=== PATIENT | female | born 1960 | race Caucasian/White ===

== ENCOUNTER → 2016-08-17 | Day surgery (SDC) | payer OTHER ==
[2016-08-07 15:30] VITALS: Ht 167.6 cm; Wt 122.7 kg
[~2016-08-17] VITALS: Ht 167.6 cm; Wt 122.7 kg
[~2016-08-17] MED LIST: ALBUAER2 INH; APIX1TAB3 PO; BRIM0.1S OPB; FENTANYL CITRATE INJ 50 MCG/1 ML 2 ML VIAL ONE; GLIM1TAB2 PO; LEVO150T PO; LIDOCAINE HCL 2% 2 ML VIAL (20MG/ML) ONE; LORA-741 PO; LOSA50TA6 PO; METO-217 PO; MIDAZOLAM HCL 1 MG/ML 2ML VIAL ONE; NXM/40 PO; PROPOFOL IV EMULSION 10 MG/ML 20 ML VIAL IV ONE
--- NOTE | 2016-08-17 13:45 | Endo History and Physical ---
History & Physical Date of Service: Aug 17, 2016. Chief Complaint: iron deficiency anemia Referring Physician: Dr. Okeefe History of Present Illness For colonoscopy Past Medical History Diabetes, Arthritis, Asthma, Reflux, High Cholesterol, Hypertension, Thyroid Disease Past Surgical History Hx Cardiac Surgery: Yes (CARDIAC ALBATION) Hx Abdominal Surgery: Yes (SHON BSO) Hx Post-Op Nausea and Vomiting: Yes Hx Cancer Surgery: No Hx Thoracic Surgery: No Hx Orthopedic: Yes (R FOOT BONE SPUR REMOVAL, RT/LEFT TKA, RT/LEFT CTR) Hx Urinary Tract Surgery: No Family History Esophogeal CA Social History Smoking Status: Never Smoker Hx Substance Use: No Hx Alcohol Use: Yes (OCCASSIONALLY) Allergies Coded Allergies: EZEQUIEL Inhibitors (Verified Allergy, Unknown, Cough, 08/07/16) Cat Dander (Verified Allergy, Unknown, CAT,DOG DANDER-EYES SWELL SHUT, 08/17) Latex1 -Allergic Contact Dermititis (Verified Allergy, Unknown, LOCAL SKIN RASH,BRUISES, 08/17/16) POLLEN (Verified Allergy, Unknown, POLLEN,GRASS,TREES,DUST-RUNNY NOSE, ITCHY EYES,SNEEZING, 08/17/16) Uncoded Allergies: POTATOES (Allergy, Unknown, verified by allergy testing, 08/10/15) Current Medications Reported Home Medications Medications Dose Route/Sig Max Daily Dose Days Date Category Toprol Xl (Metoprolol Succinate) 50 Mg Tabcr 50 Mg PO QAM 08/07/16 Reported Alphagan P Oph (Brimonidine Tartrate) 0.1 % Karen 2 Drop OPB BID 08/07/16 Reported Ativan (Lorazepam) 0.5 Mg Tab 0.5 Mg PO DAILY PRN 12/21/15 Reported Synthroid (Levothyroxine Sodium) 150 Mcg Tab 150 Mcg PO QAM 12/21/15 Reported Cozaar (Losartan Potassium) 50 Mg Tab 50 Mg PO QAM 12/21/15 Reported Eliquis (Apixaban) 5 Mg Tab 1 Tab PO BID 08/10/15 Reported Ventolin Hfa (Albuterol) Aers 2 Puffs INH TID PRN 06/21/15 Reported Glimepiride 1 Mg Tab 1 Tab PO QAM 90 06/21/15 Reported Nexium (Esomeprazole Magnesium) 40 Mg Capcr 40 Mg PO QAM 06/21/15 Reported Vital Signs Weight (Kilograms): 122.73 Height (Feet): 5 Height (Inches): 6 Physical Exam General Appearance: + obese Respiratory/Chest: Respiratory effort: no dyspnea Cardiovascular: Apical Impulse: pertinent finding (A fib) Abdomen: Inspection & Palpation: soft Assessment and Plan anemia for colonoscopy
--- NOTE | 2016-08-17 14:30 | Discharge Instructions ---
Endoscopy Patient Instructions Date / Procedure(s) Performed Aug 17, 2016. Colonoscopy Allergy Information Coded Allergies: EZEQUIEL Inhibitors (Verified Allergy, Unknown, Cough, 08/07/16) Cat Dander (Verified Allergy, Unknown, CAT,DOG DANDER-EYES SWELL SHUT, 08/17) Latex1 -Allergic Contact Dermititis (Verified Allergy, Unknown, LOCAL SKIN RASH,BRUISES, 08/17/16) POLLEN (Verified Allergy, Unknown, POLLEN,GRASS,TREES,DUST-RUNNY NOSE, ITCHY EYES,SNEEZING, 08/17/16) Uncoded Allergies: POTATOES (Allergy, Unknown, verified by allergy testing, 08/10/15) Discharge Date / Findings Aug 17, 2016. Diverticulosis, polyp Medication Instructions Stopped Medication(s): stopped Eloquis on Saturday Restart Stopped Medication(s): resume meds Reported Home Medications Medications Dose Route/Sig Max Daily Dose Days Date Category Toprol Xl (Metoprolol Succinate) 50 Mg Tabcr 50 Mg PO QAM 08/07/16 Reported Alphagan P Oph (Brimonidine Tartrate) 0.1 % Karen 2 Drop OPB BID 08/07/16 Reported Ativan (Lorazepam) 0.5 Mg Tab 0.5 Mg PO DAILY PRN 12/21/15 Reported Synthroid (Levothyroxine Sodium) 150 Mcg Tab 150 Mcg PO QAM 12/21/15 Reported Cozaar (Losartan Potassium) 50 Mg Tab 50 Mg PO QAM 12/21/15 Reported Eliquis (Apixaban) 5 Mg Tab 1 Tab PO BID 08/10/15 Reported Ventolin Hfa (Albuterol) Aers 2 Puffs INH TID PRN 06/21/15 Reported Glimepiride 1 Mg Tab 1 Tab PO QAM 90 06/21/15 Reported Nexium (Esomeprazole Magnesium) 40 Mg Capcr 40 Mg PO QAM 06/21/15 Reported Provider Instructions Activity Restrictions - No exercising or heavy lifting for 24 hours. - Do not drink alcohol the day of the procedure. - Do not drive a car or operate machinery until the day after the procedure. - Do not make any important decisions or sign important papers in 24 hours after the procedure. Following Day: - Return to full activity which may include returning to work/school. Diet Start your diet with liquids and light foods (jello, soup, juice, toast). Then eat your usual diet if not nauseated. Treatment For Common After Affects For mild abdominal pain, bloating, or excessive gas: - Rest - Eat lightly - Lie on right side Follow-Up Information Follow-up with Dr. Emmy Okeefe as scheduled Anesthesia Information What You Should Know You have had a procedure that required some medicine to reduce anxiety and discomfort. This treatment is called moderate sedation. After receiving the treatment, you may be sleepy, but you will be able to breathe on your own. The effects of the treatment may last for several hours. Follow these instructions along with Activity/Diet recommendations noted above: * Do NOT do anything where dizziness or clumsiness would be dangerous. * Rest quietly at home today, then you can be up and about tomorrow. * Have a responsible person stay with you the rest of today. * You may have had an I.V. today. If so, you may take the dressing off later today. Recommendations Call your doctor if: * Trouble breathing * Continuous vomiting for more than 24 hours * Temperature above 101 degrees * Severe abdominal pain or bloating * Pain not relieved by pain medicine ordered * There is increased drainage or redness from any incision * A large amount of rectal bleeding greater than 2-3 tablespoons. (If you had a polyp/s removed or have hemorrhoids, a small amount of blood - from the rectum is to be expected.) * You have any unanswered questions or concerns. IN THE EVENT OF A SERIOUS EMERGENCY, GO TO THE NEAREST EMERGENCY ROOM Your discharge instructions were prepared by provider Jeffery Echeverria. Patient Instructions Signature Page Donna Rowley Patient (or Guardian) Signature/Date: I have read and understand the instructions given to me by my caregivers. Caregiver/RN/Doctor Signature/Date: The above-named patient and/or guardian has received patient instructions on this date. + Original Patient Signature Page (only) stays with chart. Please make copy for patient.
--- NOTE | 2016-08-17 14:39 | GI REPORT ---
Procedure Date: 08/17/2016 1:55 PM Procedure: Colonoscopy Indications: Iron deficiency anemia Medicines: Midazolam 2 mg IV, Propofol total dose 300 mg IV, Lidocaine 40 mg IV Complications: No immediate complications., IV infiltration Estimated Blood Loss: Estimated blood loss was minimal. Procedure: Pre-Anesthesia Assessment: - Prior to the procedure, a History and Physical was performed, and patient medications, allergies and sensitivities were reviewed. The patient's tolerance of previous anesthesia was reviewed. - The risks and benefits of the procedure and the sedation options and risks were discussed with the patient. All questions were answered and informed consent was obtained. After I obtained informed consent, the scope was passed under direct vision. Throughout the procedure, the patient's blood pressure, pulse, and oxygen saturations were monitored continuously. The scope was introduced through the anus and advanced to the terminal ileum. The colonoscopy was performed without difficulty. The patient tolerated the procedure well. The quality of the bowel preparation was excellent. Findings: The terminal ileum appeared normal. A 4 mm polyp was found in the rectum. The polyp was sessile. The polyp was removed with a cold snare. Resection and retrieval were complete. Estimated blood loss was minimal. A few diverticula were found in the sigmoid colon. Impression: - The examined portion of the ileum was normal. - One 4 mm polyp in the rectum, removed with a cold snare. Resected and retrieved. - Diverticulosis in the sigmoid colon. Recommendation: - Discharge patient to home (ambulatory). - Continue present medications. - Await pathology results. - Return to primary care physician ANGELINAN. Jeffery Echeverria M.D. Jeffery Echeverria MD 08/17/2016 2:39:22 PM This report has been signed electronically. Note Initiated On: 08/17/2016 1:55 PM I attest to the content of the Intraoperative Record and orders documented therein, exceptions below
--- NOTE | 2016-08-17 14:49 | Anesthesiology Progress Note ---
Anesthesia Post Op Note Date & Time Aug 17, 2016 at 14:50 Vital Signs Pain Intensity: 0 Vital Signs Past 12 Hours Date Time Temp Pulse Resp B/P Pulse Ox O2 Delivery O2 Flow Rate FiO2 08/17/16 14:36 77 16 132/68 96 Room Air 08/17/16 13:25 36.6 88 18 189/72 98 Room Air Notes Mental Status: alert / awake / arousable, participated in evaluation Pt Amnestic to Procedure: Yes Nausea / Vomiting: adequately controlled Pain: adequately controlled Airway Patency, RR, SpO2: stable & adequate BP & HR: stable & adequate Hydration State: stable & adequate Anesthetic Complications: no major complications apparent
[2016-08-17 15:06] VITALS: BP 131/82; PULSE 71; O2SAT 96
== END | disposition home or self-care (01) ==
LOC: C.GI 13:08
PROVIDERS: ATTEND Internal Medicine Gastroenterology
DX: D50.9 Iron deficiency anemia, unspecified (principal); D12.8 Benign neoplasm of rectum; K21.9 Gastro-esophageal reflux disease without esophagitis; K57.32 Diverticulitis of large intestine without perforation or abscess without bleeding; E11.9 Type 2 diabetes mellitus without complications; J45.909 Unspecified asthma, uncomplicated; E78.00 Pure hypercholesterolemia, unspecified; I10 Essential (primary) hypertension; E07.9 Disorder of thyroid, unspecified

== ENCOUNTER → 2016-12-19 | Outpatient (CLI) | payer OTHER ==
[~2016-12-19] MED LIST changes: -FENTANYL CITRATE INJ 50 MCG/1 ML 2 ML VIAL ONE; -LIDOCAINE HCL 2% 2 ML VIAL (20MG/ML) ONE; -MIDAZOLAM HCL 1 MG/ML 2ML VIAL ONE; +OPTIRAY 320 IV PRN; -PROPOFOL IV EMULSION 10 MG/ML 20 ML VIAL IV ONE
--- NOTE | 2016-12-19 15:25 | DIAGNOSTIC IMAGING REPORT ---
CT ABD/PELVIS IV AND ORAL CONT CLINICAL HISTORY: Abdominal pain. History of diverticulitis. Possible abscess. COMPARISON STUDY: 04/07/2015 TECHNIQUE: Following the IV administration of 93 mL of Optiray-320, CT scan of the abdomen and pelvis was performed from the lung bases to the proximal femurs. Images are reviewed in the axial, sagittal, and coronal planes. IV contrast was administered without complication. CT DOSE: 1719.16 mGy.cm FINDINGS: Lower chest: The heart is normal in size and configuration, without pericardial effusion. The lung bases and pleural spaces are clear. Liver: There is mild hepatic steatosis. No suspicious space-occupying masses are visualized. Portal vein appears patent. Gallbladder: Surgically absent Spleen: Normal in size and attenuation. Pancreas: Unremarkable. Adrenal glands: Unremarkable. Kidneys: Subcentimeter left renal hypodensities remain stable. These are too small to characterize but likely represent cysts. Bowel: There are no transition zones indicate bowel obstruction. The appendix is not visualized with certainty. There are no findings to indicate acute appendicitis. There is minimal infiltration of the perisigmoid fat. There are few scattered diverticula present. The findings likely represent mild diverticulitis. There are no fluid collections to indicate an abscess. Peritoneum: There is no intraperitoneal free air or abdominal ascites. Vasculature: The abdominal aorta is normal in course and caliber. Adenopathy: None. Pelvic viscera: The uterus is surgically absent. Skeletal structures: No destructive osseous lesions are seen. IMPRESSION: 1. No evidence of bowel obstruction. No evidence of free air 2. Subtle infiltration of the perisigmoid fat, likely secondary to mild diverticulitis. No evidence of peridiverticular abscess. 3. No evidence of acute appendicitis. 4. Hepatic steatosis Electronically signed by: Hardy Lewis M.D. 12/19/2016 3:23 PM Dictated Date/Time: 12/19/2016 3:18 PM
== END | disposition home or self-care (01) ==
LOC: C.CTS 12:48
PROVIDERS: ATTEND Nurse Practitioner Family
DX: K57.92 Diverticulitis of intestine, part unspecified, without perforation or abscess without bleeding (principal); K76.0 Fatty (change of) liver, not elsewhere classified

== ENCOUNTER → 2017-03-13 | Outpatient (CLI) | payer OTHER ==
[~2017-03-13] MED LIST changes: -OPTIRAY 320 IV PRN
[2017-03-13 14:13] LABS: THYROID STIMULATING HORMONE 2.18 uIu/ml (0.300-4.500)
== END | disposition home or self-care (01) ==
LOC: C.LABPBG 07:27
PROVIDERS: ATTEND Family Medicine
DX: E03.9 Hypothyroidism, unspecified (principal)

== ENCOUNTER → 2017-06-13 | Outpatient (CLI) | payer OTHER ==
[2017-06-13 18:16] LABS: THYROID STIMULATING HORMONE 2.56 uIu/ml (0.300-4.500)
== END | disposition home or self-care (01) ==
LOC: C.LABPBG 15:13
PROVIDERS: ATTEND Family Medicine
DX: E11.9 Type 2 diabetes mellitus without complications (principal); E03.9 Hypothyroidism, unspecified

== ENCOUNTER → 2017-06-17 | Outpatient (CLI) | payer OTHER | END | disposition home or self-care (01) | LOC: C.LABPBG 13:06 | PROVIDERS: ATTEND Family Medicine | DX: E11.9 Type 2 diabetes mellitus without complications (principal); E03.9 Hypothyroidism, unspecified ==

== ENCOUNTER 2017-11-04 13:50 | Emergency (ER) | payer OTHER ==
[~2017-11-04] VITALS: Ht 167.6 cm; Wt 109.7 kg
[2017-11-04 13:57] VITALS: TEMP 38.2; Ht 167.6 cm; Wt 109.7 kg
[2017-11-04] MEDS ORDERED: ONDANSETRON INJ 2 MG/ML 2 ML VIAL IV STA (14:18)
[2017-11-04] MEDS ORDERED: SODIUM CHLORIDE 0.9% 1000ML 1,000 ML IV STA (14:18)
[2017-11-04] MEDS ORDERED: ACETAMINOPHEN 500 MG TAB PO STA (14:18)
[2017-11-04] MEDS ORDERED: SODIUM CHLORIDE 0.9% 1000ML 500 ML IV STA (14:18)
[2017-11-04] MEDS ORDERED: ROSU5TAB19 PO (14:29)
[2017-11-04] MEDS ORDERED: PROP150T2 PO (14:29)
[2017-11-04] MEDS ORDERED: VNTHFA/IN INH (14:29)
[2017-11-04 14:33] LABS: BASO % 0.1 %; BASO ABS # 0.01 K/uL (0-0.2); EOS % 1.1 %; EOS ABS # 0.13 K/uL (0-0.5); HEMATOCRIT 40.6 % (37-47); HEMOGLOBIN 13.4 g/dL (12.0-16.0); IG# 0.02 K/uL (0.00-0.02); LYMPH % 3.9 %; LYMPH ABS # 0.44 K/uL (1.2-3.4); MEAN CELL VOLUME 87.3 fL (80-100); MEAN CORPUSCULAR HEMOGLOBIN 28.8 pg (25-34); MONO % 3.9 %; MONO ABS # 0.44 K/uL (0.11-0.59); NEUT % 90.8 %; NEUT ABS # 10.27 K/uL (1.4-6.5); PLATELET COUNT 256 K/uL (130-400); RED CELL DISTRIBUTION WIDTH CV 13.9 % (11.5-14.5); RED CELL DISTRIBUTION WIDTH SD 44.3 fL (36.4-46.3); WHITE BLOOD COUNT 11.31 K/uL (4.8-10.8)
[2017-11-04 14:53] LABS: ALBUMIN 3.7 gm/dl (3.4-5.0); ALT/SGPT 35 U/L (12-78); AST/SGOT 19 U/L (15-37); BLOOD UREA NITROGEN 10 mg/dl (7-18); CALCIUM 8.7 mg/dl (8.5-10.1); CARBON DIOXIDE 26 mmol/L (21-32); CREATININE 0.84 mg/dl (0.60-1.20); GLUCOSE 157 mg/dl (70-99); LIPASE 100 U/L (73-393); POTASSIUM 3.7 mmol/L (3.5-5.1); SODIUM 139 mmol/L (136-145)
[2017-11-04 14:55] LABS: ALKALINE PHOSPHATASE 148 U/L (45-117); TOTAL PROTEIN 8.2 gm/dl (6.4-8.2)
--- NOTE | 2017-11-04 14:58 | EMERGENCY ROOM VISIT NOTE ---
History Report prepared by Lester: Danika Barker Under the Supervision of: Dr. Chetan Locke M.D. First contact with patient: 14:06 Chief Complaint: VOMITING Stated Complaint: THROWING UP History of Present Illness The patient is a 57 year old female who presents to the Emergency Room with complaints of abdominal pain beginning last night. The patient rates her pain at an 8/10. She reports that she feels fatigued and that when she stands her stomach feels like it is cramping. The patient states that bending over and curling up alleviates her abdominal pain. She also reports having nausea, vomiting, and a fever. The patient states that she has two hernias, one of which is an umbilical hernia and the other one is incisional. She reports a history of a cholecystectomy and states that she has had part of her intestine removed in [place] due to diverticulitis. The patient states that she takes medication for hypertension and that she did not take her medication today. She denies a history of an appendectomy. Pt denies LOC, headache, chills, diaphoresis, visual changes, neck pain, chest pain, breathing difficulties, back pain, melena, hematochezia, urinary symptoms, numbness, weakness, lymphadenopathy, rash, or other complaints. Source of History: patient Onset: last night Position: abdomen Symptom Intensity: rated at an 8/10 Quality: cramping Modifying Factors (Relieving): other (bending over, curling up ) Associated Symptoms: + fevers, + nausea, + vomiting, No chest pain Review of Systems See HPI for pertinent positives and negatives. A total of ten systems were reviewed and were otherwise negative. Past Medical & Surgical Medical Problems: (1) Asthma (2) Diabetes (3) Heart disease (4) Hypertension Surgical Problems: (1) S/P cholecystectomy (2) S/P partial colectomy Family History Gallbladder disease Heart disease Hypertension Seizures Social History Smoking Status: Never Smoker Alcohol Use: occasionally Housing Status: lives with significant other Occupation Status: employed Current/Historical Medications Scheduled Apixaban (Eliquis), 5 MG PO BID Esomeprazole Magnesium (Nexium), 40 MG PO BID Glimepiride (Glimepiride), 1 MG PO BID Levothyroxine Sodium (Synthroid), 150 MCG PO QAM Losartan Potassium (Cozaar), 50 MG PO QAM Metoprolol Succinate (Toprol Xl), 50 MG PO QAM Propafenone HCl (Propafenone HCl), 150 MG PO BID Rosuvastatin Calcium (Rosuvastatin Calcium), 5 MG PO DAILY Scheduled PRN Albuterol Hfa (Ventolin Hfa), 2 PUFFS INH TID PRN for SOB/Wheezing Allergies Coded Allergies: EZEQUIEL Inhibitors (Verified Allergy, Unknown, Cough, 11/04/17) Cat Dander (Verified Allergy, Unknown, CAT,DOG DANDER-EYES SWELL SHUT, ) Latex1 -Allergic Contact Dermititis (Verified Allergy, Unknown, LOCAL SKIN RASH,BRUISES, 11/04/17) POLLEN (Verified Allergy, Unknown, POLLEN,GRASS,TREES,DUST-RUNNY NOSE, ITCHY EYES,SNEEZING, 11/04/17) Uncoded Allergies: POTATOES (Allergy, Unknown, verified by allergy testing, 08/10/15) Physical Exam Vital Signs Date Time Temp Pulse Resp B/P (MAP) Pulse Ox O2 Delivery O2 Flow Rate FiO2 11/04/17 16:18 79 16 128/73 96 Room Air 11/04/17 15:01 85 11/04/17 13:57 38.2 95 20 203/112 96 Room Air Physical Exam GENERAL: Awake, alert, uncomfortable-appearing, in no distress HENT: Normocephalic, atraumatic. Oropharynx unremarkable. EYES: Normal conjunctiva. Sclera non-icteric. NECK: Supple. No nuchal rigidity. FROM. No masses. RESPIRATORY: Clear to auscultation. No wheezes. No rales. Normal respiratory effort. CARDIAC: Mildly tachycardic. Normal rhythm. No murmurs. No rubs. Extremities warm and well perfused. Pulses equal. No JVD. GI: Soft, non-distended. Reducible, nontender umbilical hernia. Suprapubic, right lower quadrant, and right upper quadrant tenderness. No rebound or guarding. RECTAL: Deferred. MUSCULOSKELETAL: Atraumatic. Chest examination reveals no tenderness. The back is symmetrical on inspection without obvious abnormality. There is no CVA tenderness to palpation. No joint edema. LOWER EXTREMITIES: Calves are equal size bilaterally and non-tender. No edema. No discoloration. NEURO: Normal sensorium. No sensory or motor deficits noted. SKIN: No rash or jaundice noted. Medical Decision & Procedures ER Provider Diagnostic Interpretation: Radiology results as stated below per my review and radiologist interpretation: CT SCAN OF THE ABDOMEN AND PELVIS WITHOUT CONTRAST CLINICAL HISTORY: Acute right-sided abdominal pain. Vomiting. COMPARISON STUDY: 12/19/2016 TECHNIQUE: CT scan of the abdomen and pelvis was performed from the lung bases to the proximal femurs. Images are reviewed in the axial, sagittal, and coronal planes. IV contrast was not administered for this examination. A dose lowering technique was utilized adhering to the principles of ALARA. CT DOSE: 949.60 mGycm FINDINGS: Lower chest: The heart is normal in size and configuration, without pericardial effusion. The lung bases and pleural spaces are clear. Liver: There is mild hepatic steatosis. No focal masses are visualized in this noncontrast study Gallbladder: Surgically absent Spleen: Normal in size and attenuation. Pancreas: Unremarkable. Adrenal glands: Unremarkable. Kidneys: No renal, ureteral, or bladder calculi are visualized. Bowel: There are no transition zones indicate bowel obstruction. There is a surgical anastomotic suture line within the sigmoid. There is colonic diverticulosis. There are no acute peridiverticular inflammatory changes. There are no findings to indicate acute appendicitis. Peritoneum: There is no intraperitoneal free air or abdominal ascites. As a fat-containing umbilical hernia Vasculature: The abdominal aorta is normal in course and caliber. Adenopathy: None. Pelvic viscera: The uterus appears surgically absent Skeletal structures: No destructive osseous lesions are seen. IMPRESSION: 1. No acute intra-abdominal or pelvic findings 2. Surgically absent uterus and gallbladder 3. Fat-containing umbilical hernia 4. No evidence of bowel obstruction. No evidence of free air 5. Diverticulosis. No evidence of acute diverticulitis Electronically signed by: Hardy Lewis M.D. 11/04/2017 2:56 PM Dictated Date/Time: 11/04/2017 2:51 PM Laboratory Results 11/04/17 14:10 Red Blood Count 4.65, Mean Corpuscular Volume 87.3, Mean Corpuscular Hemoglobin 28.8, Mean Corpuscular Hemoglobin Concent 33.0, Mean Platelet Volume 9.0, Neutrophils (%) (Auto) 90.8, Lymphocytes (%) (Auto) 3.9, Monocytes (%) (Auto) 3.9, Eosinophils (%) (Auto) 1.1, Basophils (%) (Auto) 0.1, Neutrophils # (Auto) 10.27, Lymphocytes # (Auto) 0.44, Monocytes # (Auto) 0.44, Eosinophils # (Auto) 0.13, Basophils # (Auto) 0.01 11/04/17 14:10 Test 11/04/17 14:10 11/04/17 15:50 White Blood Count 11.31 K/uL (4.8-10.8) Red Blood Count 4.65 M/uL (4.2-5.4) Hemoglobin 13.4 g/dL (12.0-16.0) Hematocrit 40.6 % (37-47) Mean Corpuscular Volume 87.3 fL (80-100) Mean Corpuscular Hemoglobin 28.8 pg (25-34) Mean Corpuscular Hemoglobin Concent 33.0 g/dl (32-36) Platelet Count 256 K/uL (130-400) Mean Platelet Volume 9.0 fL (7.4-10.4) Neutrophils (%) (Auto) 90.8 % Lymphocytes (%) (Auto) 3.9 % Monocytes (%) (Auto) 3.9 % Eosinophils (%) (Auto) 1.1 % Basophils (%) (Auto) 0.1 % Neutrophils # (Auto) 10.27 K/uL (1.4-6.5) Lymphocytes # (Auto) 0.44 K/uL (1.2-3.4) Monocytes # (Auto) 0.44 K/uL (0.11-0.59) Eosinophils # (Auto) 0.13 K/uL (0-0.5) Basophils # (Auto) 0.01 K/uL (0-0.2) RDW Standard Deviation 44.3 fL (36.4-46.3) RDW Coefficient of Variation 13.9 % (11.5-14.5) Immature Granulocyte % (Auto) 0.2 % Immature Granulocyte # (Auto) 0.02 K/uL (0.00-0.02) Anion Gap 7.0 mmol/L (3-11) Est Creatinine Clear Calc Drug Dose 90.4 ml/min Estimated GFR () 88.2 Estimated GFR (Non- 76.1 BUN/Creatinine Ratio 12.5 (10-20) Calcium Level 8.7 mg/dl (8.5-10.1) Total Bilirubin 0.4 mg/dl (0.2-1) Direct Bilirubin < 0.1 mg/dl (0-0.2) Aspartate Amino Transf (AST/SGOT) 19 U/L (15-37) Alanine Aminotransferase (ALT/SGPT) 35 U/L (12-78) Alkaline Phosphatase 148 U/L (45-117) Total Protein 8.2 gm/dl (6.4-8.2) Albumin 3.7 gm/dl (3.4-5.0) Lipase 100 U/L (73-393) Urine Color YELLOW Urine Appearance CLEAR (CLEAR) Urine pH 6.0 (4.5-7.5) Urine Specific [place] 1.024 (1.000-1.030) Urine Protein NEG (NEG) Urine Glucose (UA) NEG (NEG) Urine Ketones NEG (NEG) Urine Occult Blood NEG (NEG) Urine Nitrite NEG (NEG) Urine Bilirubin NEG (NEG) Urine Urobilinogen NEG (NEG) Urine Leukocyte Esterase TRACE (NEG) Urine WBC (Auto) 1-5 /hpf (0-5) Urine RBC (Auto) 0-4 /hpf (0-4) Urine Hyaline Casts (Auto) 0 /lpf (0-5) Urine Epithelial Cells (Auto) 20-30 /lpf (0-5) Urine Bacteria (Auto) NEG (NEG) Laboratory results reviewed by me Medications Administered Medications (Trade) Dose Ordered Sig/[place] Route Start Time Stop Time Status Last Admin Dose Admin Sodium Chloride 1,000 ml @ 125 mls/hr Q8H STAT IV 11/04/17 14:18 11/04/17 17:12 DC 11/04/17 14:29 125 MLS/HR Sodium Chloride 500 ml @ 999 mls/hr Q31M STAT IV 11/04/17 14:18 11/04/17 14:48 DC 11/04/17 14:30 999 MLS/HR Ondansetron HCl (Zofran Inj) 4 mg NOW STAT IV 11/04/17 14:18 11/04/17 14:19 DC 11/04/17 14:29 4 MG Acetaminophen (Tylenol Tab) 1,000 mg NOW STAT PO 11/04/17 14:18 11/04/17 14:19 DC 11/04/17 14:30 1,000 MG Promethazine HCl (Phenergan 25MG Home Pack) 1 homepack UD ONCE PO 11/04/17 17:00 11/04/17 17:01 DC 11/04/17 16:56 1 HOMEPACK ED Course 1410: The patient was evaluated in room B3B. A complete history and physical exam was performed. 1418: Ordered Tylenol Tab 1,000 mg PO, Zofran Inj 4 mg IV, Sodium Chloride 500 ml @ 999 mls/hr IV, Sodium Chloride 1,000 ml @ 125 mls/hr IV. 1440: I went to check on the patient but she was in CT. 1515: I checked on the patient. She is feeling better and says that her nausea is gone. 1650: I reevaluated the patient. Discussed results and discharge instructions: She verbalized understanding and agreement. The patient is ready for discharge. 1700: Ordered Promethazine HCl 1 homepack PO. Medical Decision Prior records/ancillary studies reviewed. Triage Nursing notes reviewed and agree them. The patient's history was concerning for abdominal pain. Differential diagnosis: Etiologies such as appendicitis, diverticulitis, PUD, biliary pathology, gastroenteritis, gastritis, UTI, pancreatitis, obstruction, mesenteric ischemia , aortic pathology, infections, inflammatory bowel disease, renal colic, as well as others were entertained. Physical examination findings: As above. ER treatment provided: Normal saline hydration IV Zofran Patient declined analgesia On reassessment the patient felt significantly better. She was tolerating oral fluids without difficulty. Diagnostics interpreted by me: The labs revealed a moderate leukocytosis on CBC. Chemistry panel was unremarkable except for mild hyperglycemia. Urinalysis unremarkable Imaging studies: CT scan as above Clinical the patient is doing well. Her symptoms have resolved with hydration and Zofran. She did not receive any pain medication. She was tolerating oral fluids. 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 She may have picked up a possible virus to this nausea, vomiting and abdominal pain. She has not had any diarrhea to this point. There is no evidence of significant pathology on CT imaging. As she has resolution of her symptoms I discussed conservative management. The patient was given a Phenergan home pack. She feels very comfortable with the plan. If she worsens in any way she will be back. She will follow-up as an outpatient for recheck of the current condition as well as her blood pressure. I gave my usual and customary discussion regarding this issue. By the evaluation outlined above other emergent etiologies such as those listed in the differential, as well as others, were deemed relatively unlikely. The patient was educated about the findings as listed above. All questions were answered and the patient was pleased with the treatment. Return instructions were outlined and the patient was discharged in stable condition. The patient was referred to her PCP for follow-up for a recheck of the current condition. Medication Reconcilliation Current Medication List: was personally reviewed by me Blood Pressure Screening Patient's blood pressure: Elevated blood pressure Blood pressure disposition: Referred to PCP Impression Primary Impression: Vomiting Additional Impression: Right sided abdominal pain Scribe Attestation The scribe's documentation has been prepared under my direction and personally reviewed by me in its entirety. I confirm that the note above accurately reflects all work, treatment, procedures, and medical decision making performed by me. Departure Information Dispostion Home / Self-Care Referrals Emmy Okeefe D.O. (PCP) Forms HOME CARE DOCUMENTATION FORM, IMPORTANT VISIT INFORMATION Patient Instructions My [facility] Additional Instructions VOMITING INSTRUCTIONS: Phenergan(promethazine) tablets 25mg: Take one every six hours as needed for nausea. Avoid alcohol, operating machinery or dangerous equipment, working on ladders or roofs, DRIVING, or situations where being under the influence may be dangerous. Acetaminophen(Tylenol) may be used for fever or pain. Use 1000mg every six hours as needed. Avoid using more than 4000mg in a 24 hour period. Rest and drink plenty of fluids as tolerated. Slow sips of water or sports drinks are recommended instead of large amounts all at once. Continue current medications. Once your stomach is settled start with a clear liquid diet (jello, soup broth, etc.) and then advance as tolerated. You should avoid full, heavy meals for about 24 hrs from the time your symptoms resolved. Return to the ER for persistent vomiting, fevers, abdominal pain, chest pains, difficulty breathing, black or bloody stools, worsening of your condition, or as needed. Follow up with your primary physician in 2-3 days for a recheck of your current condition Problem Qualifiers
[2017-11-04 16:18] VITALS: BP 128/73; PULSE 79; O2SAT 96
[2017-11-04] MEDS ORDERED: PHENERGAN 25MG HOMEPACK PO ONE (17:00)
== END 2017-11-04 16:58 | disposition home or self-care (01) ==
LOC: C.EDB 13:51
DX: R11.10 Vomiting, unspecified (principal); R10.9 Unspecified abdominal pain; E11.9 Type 2 diabetes mellitus without complications; J45.909 Unspecified asthma, uncomplicated; I11.9 Hypertensive heart disease without heart failure; Z79.01 Long term (current) use of anticoagulants; Z79.899 Other long term (current) drug therapy; Z79.84 Long term (current) use of oral hypoglycemic drugs; Z88.8 Allergy status to other drugs, medicaments and biological substances; Z91.048 Other nonmedicinal substance allergy status; Z91.018 Allergy to other foods

== ENCOUNTER → 2017-11-11 | Outpatient (CLI) | payer OTHER ==
[~2017-11-11] MED LIST changes: -ALBUAER2 INH; -BRIM0.1S OPB; -LORA-741 PO; +PROP150T2 PO; +ROSU5TAB19 PO; +VNTHFA/IN INH
--- NOTE | 2017-11-11 10:45 | DIAGNOSTIC IMAGING REPORT ---
CHEST 2 VIEWS ROUTINE CLINICAL HISTORY: Preoperative evaluation. Umbilical hernia. COMPARISON STUDY: Chest radiograph December 01, 2012. FINDINGS: Lung volumes are normal. Lungs are clear. No pneumothorax or pleural effusion is noted. Patient is mildly rotated. There is no evidence for pulmonary edema. Cholecystectomy clips are noted. IMPRESSION: No acute cardiopulmonary findings. Electronically signed by: Derek Rodríguez M.D. 11/11/2017 10:43 AM Dictated Date/Time: 11/11/2017 10:43 AM
== END | disposition home or self-care (01) ==
LOC: C.RAD 10:22
PROVIDERS: ATTEND Surgery
DX: K42.9 Umbilical hernia without obstruction or gangrene (principal)

== ENCOUNTER → 2017-11-25 | Outpatient (CLI) | payer OTHER ==
[~2017-11-25] MED LIST changes: +MULT1CHW28 PO; +PEDICHW34 PO
[2017-11-25 12:15] LABS: BASO % 0.5 %; BASO ABS # 0.03 K/uL (0-0.2); EOS % 4.8 %; EOS ABS # 0.26 K/uL (0-0.5); HEMATOCRIT 34.9 % (37-47); HEMOGLOBIN 11.3 g/dL (12.0-16.0); IG# 0.02 K/uL (0.00-0.02); LYMPH % 25.5 %; LYMPH ABS # 1.39 K/uL (1.2-3.4); MEAN CELL VOLUME 87.5 fL (80-100); MEAN CORPUSCULAR HEMOGLOBIN 28.3 pg (25-34); MEAN CORPUSCULAR HGB CONC 32.4 g/dl (32-36); MEAN PLATELET VOLUME 9.4 fL (7.4-10.4); MONO % 7.3 %; NEUT % 61.5 %; NEUT ABS # 3.36 K/uL (1.4-6.5); PLATELET COUNT 250 K/uL (130-400); RED CELL DISTRIBUTION WIDTH CV 13.6 % (11.5-14.5); RED CELL DISTRIBUTION WIDTH SD 43.6 fL (36.4-46.3); WHITE BLOOD COUNT 5.46 K/uL (4.8-10.8)
[2017-11-25 12:38] LABS: ALBUMIN 3.5 gm/dl (3.4-5.0); ALT/SGPT 38 U/L (12-78); AST/SGOT 22 U/L (15-37); BLOOD UREA NITROGEN 9 mg/dl (7-18); CALCIUM 8.4 mg/dl (8.5-10.1); CARBON DIOXIDE 27 mmol/L (21-32); CREATININE 0.67 mg/dl (0.60-1.20); GLUCOSE 160 mg/dl (70-99); POTASSIUM 3.7 mmol/L (3.5-5.1); SODIUM 141 mmol/L (136-145)
[2017-11-25 12:41] LABS: ALKALINE PHOSPHATASE 121 U/L (45-117); TOTAL PROTEIN 7.1 gm/dl (6.4-8.2)
== END | disposition home or self-care (01) ==
LOC: C.LABCCP 11:18
PROVIDERS: ATTEND Nurse Practitioner Family
DX: D50.9 Iron deficiency anemia, unspecified (principal)

== ENCOUNTER → 2017-12-03 | Day surgery (SDC) | payer OTHER ==
[2017-11-15 12:35] VITALS: Ht 167.6 cm; Wt 109.1 kg
[~2017-12-03] VITALS: Ht 167.6 cm; Wt 109.1 kg
[~2017-12-03] MED LIST changes: +ACETAMINOPHEN 1000 MG/100 ML IV IV ONE; +ATROPINE SULFATE 0.1 MG/ML 5ML SYR IV PRN; +BACITRACIN 50000 UNIT VIAL ONE; +BUPIVACAINE 0.5 % 5 MG/1 ML PF 10ML VIAL ONE; +CEFAZOLIN SOD 1 GM VIAL ONE; +DEXAMETHASONE SOD INJ 4 MG/ML VIAL ONE; +EpHEDrine SULFATE INJ 50 MG/ML AMP IV PRN; +FENTANYL CITRATE INJ 50 MCG/1 ML 2 ML VIAL IV PRN; +FENTANYL CITRATE INJ 50 MCG/1 ML 2 ML VIAL ONE; +GLYCOPYRROLATE INJ 0.2 MG/ML VIAL ONE; +HYDROmorphone INJ 1 MG/ML SYR IV PRN; +LACTATED RINGER'S 1000ML 1,000 ML IV SCH; +LARYING-O-JET KIT (LTA) ONE; +LIDOCAINE HCL 2% 2 ML VIAL (20MG/ML) ONE; +METOCLOPRAMIDE HCL INJ 5 MG/ML 2 ML VIAL ONE; +MIDAZOLAM HCL 1 MG/ML 2ML VIAL ONE; +MoRPHine SULFATE 4 MG/ML 1 ML CARP\\VIAL IV PRN; +NEOSTIGMINE METHYLSULFATE 5 MG/5 ML SYR ONE; +ONDANSETRON INJ 2 MG/ML 2 ML VIAL IV PRN; +ONDANSETRON INJ 2 MG/ML 2 ML VIAL ONE; +OXYC-57 PO; +OXYCODONE/ACETAMINOPHEN 5-325 TAB PO PRN; +PROMETHAZINE HCL INJ 12.5 MG in SODIUM CHLORIDE 0.9% 50ML 50 ML IV PRN; +PROPOFOL IV EMULSION 10 MG/ML 20 ML VIAL ONE; +ROCURONIUM BROMIDE 10 MG/ML 5 ML VIAL ONE
[2017-12-03 05:39] VITALS: BP 151/89; PULSE 71; TEMP 36.8; O2SAT 97
--- NOTE | 2017-12-03 06:18 | History & Physical Bridge Note ---
H&P Re-Evaluation Bridge Note: I have examined the patient, reviewed the History & Physical and in the interval since the performance of the History & Physical I have noted the following changes of clinical significance: No changes noted pt marked, SO at bedside, all questions answered
--- NOTE | 2017-12-03 08:07 | [facility] Post Operative Brief Note ---
Immediate Operative Summary Operative Date December 03, 2017. 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
--- NOTE | 2017-12-03 08:25 | Discharge Instructions ---
Discharge Instructions Date of Service December 03, 2017. Visit Reason for Visit: Umbilical Hernia Discharge Discharge Diagnosis / Problem: laparoscopic hernia repair Discharge Goals Goal(s): Decrease discomfort Activity Recommendations Activity Limitations: as noted below Lifting Limitations: no more than 10 pounds Shower/Bathe: tomorrow (remove bandage to shower) Driving or Machine Use: resume 3 days after discharge Anesthesia . Post Anesthesia Instructions: If you have had General Anesthesia or IV Sedation: * Do not drive today. * Resume driving when surgeon permits. * Do not make important decisions or sign legal documents today. * Call surgeon for: 1. Temperature elevations greater than 101 degrees F. 2. Uncontrollable pain. 3. Excessive bleeding. 4. Persistent nausea and vomiting. 5. Medication intolerance (nausea, vomiting or rash). * For nausea and vomiting use only clear liquids such as: tea, soda, bouillon until nausea subsides, then gradually increase diet as tolerated. * If you have any concerns or questions, call your surgeon's office. If physician is unavailable and it is an emergency, call 911 or go to the nearest emergency room. . Instructions / Follow-Up Instructions / Follow-Up in 1 week, call [phone] if you have any questions or if you do not already have an appt Restart Eliquis tomorrow Diet Recommendations Recommended Home Diet: no limitations Procedures Procedures Performed: lap lyses of adhesions and repair hernia with konstantin 14 cm surgimesh Pending Studies Studies pending at discharge: no Medical Emergencies . Who to Call and When: Medical Emergencies: If at any time you feel your situation is an emergency, please call 911 immediately. . Non-Emergent Contact Non-Emergency issues call your: Surgeon Call Non-Emergent contact if: you have a fever, temperature is above 101.5, your pain is not controlled, wound has increased pain, you have any medication questions . . "Provider Documentation" section prepared by Stan Yang. .
--- NOTE | 2017-12-03 08:54 | Anesthesiology Progress Note ---
Anesthesia Post Op Note Date & Time December 03, 2017 at 08:54 Vital Signs Pain Intensity: 0 Vital Signs Past 12 Hours Date Time Temp Pulse Resp B/P (MAP) Pulse Ox O2 Delivery O2 Flow Rate FiO2 12/03/17 08:40 66 14 147/80 97 Oxymask 3 12/03/17 08:30 67 14 158/79 97 Oxymask 5 12/03/17 08:21 36.2 74 12 167/85 97 Oxymask 10 12/03/17 05:39 36.8 71 18 151/89 (109) 97 Room Air Notes Mental Status: alert / awake / arousable, participated in evaluation Pt Amnestic to Procedure: Yes Nausea / Vomiting: adequately controlled Pain: adequately controlled Airway Patency, RR, SpO2: stable & adequate BP & HR: stable & adequate Hydration State: stable & adequate Anesthetic Complications: no major complications apparent
[2017-12-03 09:28] VITALS: BP 141/67; PULSE 62; TEMP 36.6; O2SAT 96
[2017-12-03 09:35] VITALS: BP 143/65; PULSE 62; O2SAT 92
[2017-12-03 10:05] VITALS: BP 134/63; PULSE 63; TEMP 36.5; O2SAT 95
--- NOTE | 2017-12-03 10:06 | OPERATIVE REPORT ---
DATE OF OPERATION: 12/03/2017 SURGEON: Carter Khan MD LOAD TESTER: Stan Yang PA-C PREOPERATIVE DIAGNOSIS: Umbilical incisional hernia. POSTOPERATIVE DIAGNOSIS: Incisional hernia and adhesion. PROCEDURE: Laparoscopic lysis of adhesion, repair of incisional hernia with Surgimesh approximately 14 cm in diameter. SUMMARY: The patient was brought into the operating room theater. The abdomen was prepped with Betadine scrubbing solution and properly draped. Time-out was had. Some antibiotics were given. We made a small incision supraumbilically sufficient enough to try to place a Veress needle. The Veress needle was not long enough to go through the abdominal cavity, therefore at this point, we made a larger incision and placed the trocars and elevated the fascia, then we were able to place the Veress needle into the abdomen without any problem. CO2 insufflated followed by a 5-mm trocar. Point of entry was inspected and no injury identified. Under direct visualization, we then placed a 5-mm right upper quadrant port with preemptive local analgesia 1% Xylocaine. The camera was placed in the upper port, then visualized the umbilical area. The point of entry where we went with a Veress needle and a 5-mm trocar was above the previous incision that the patient had had for a laparoscopic cholecystectomy, but the patient had an easily appreciated umbilical hernia that had omental adhesions to that area. We then placed a 5-mm left upper quadrant port with preemptive local analgesia 1% Xylocaine. Using electrocautery, we took down the adhesion. We then were able to delineate most of the defect that seemed in the umbilical area. The laparoscopy incision for gallbladder did show defect x2 which were small defects. These were all concentrated at a point, then we outlined well beyond the defects with a spinal needle. The 4 quadrants and what we were seeing was probably cephalad caudad was approximately 10 cm well beyond the area each the other way. We then brought in a sheet of Surgimesh 15 cm circular. We cut out a centimeter circumferentially. At this point, we employed an antibiotic solution. We removed the umbilical port and placed the mesh through into the abdomen, controlled the pneumoperitoneum with a towel clip, the umbilical port 5 mm was then placed in the left lower quadrant. Once we had this outlined, we elevated the mesh on the nylon stay suture right in the middle of the umbilical opening that we could elevate the mesh and centrally locate it, then circumferentially we placed 2 rolls of ProTack absorbable. Once this had been completed, we then placed #2 nylon sutures, once caudad, one distally, taking bites of the mesh and the abdominal wall, these would be stay sutures, to be fascial sutures. Once we had tied this, I noticed that the one caudad was a little bit low, therefore, this was removed and we placed it at the 3 o'clock position. This was secured in the mesh further. The repair appeared to be quite overlapping easily and quite fixed mesh. Individual trocars removed, last the left lower quadrant trocar. Wounds were checked with some bleeding appeared, satisfactory closed with Monocryl 4-0. Also of note, the umbilical trocar that we had placed above the umbilical area, which was 5 mm, when we placed the mesh, the mesh was well beyond that about 2 cm or more. The procedure was tolerated well. Estimated blood loss approximately 6 mL. The patient was taken to recovery room in good condition. I attest to the content of the Intraoperative Record and any orders documented therein. Any exceptions are noted below. PINA
[2017-12-03 11:05] VITALS: BP 140/74; PULSE 62; TEMP 36.5; O2SAT 96
[2017-12-03 12:05] VITALS: BP 124/74; PULSE 68; O2SAT 97
== END | disposition home or self-care (01) ==
LOC: C.ACU 05:11
PROVIDERS: ATTEND Surgery
DX: K42.9 Umbilical hernia without obstruction or gangrene (principal); I48.91 Unspecified atrial fibrillation; M19.90 Unspecified osteoarthritis, unspecified site; J45.909 Unspecified asthma, uncomplicated; K21.9 Gastro-esophageal reflux disease without esophagitis; E78.5 Hyperlipidemia, unspecified; I10 Essential (primary) hypertension; E03.9 Hypothyroidism, unspecified; E11.9 Type 2 diabetes mellitus without complications; G47.33 Obstructive sleep apnea (adult) (pediatric); E66.9 Obesity, unspecified; Z82.49 Family history of ischemic heart disease and other diseases of the circulatory system; Z82.3 Family history of stroke; Z91.040 Latex allergy status; Z88.8 Allergy status to other drugs, medicaments and biological substances; Z99.89 Dependence on other enabling machines and devices